=== PATIENT | male | born 1950 | race Caucasian/White ===

== ENCOUNTER 2020-08-26 08:44 | Inpatient (IN) ==
[2020-08-26] MEDS ORDERED: Isovue-370 500 ML BOTTLE IVP ONE (09:53)
[2020-08-26] MEDS ORDERED: *HR* HYDROmorphone (PF) 1 MG/ML SYRINGE IVP ONE ×2 (09:54→12:34)
[2020-08-26 10:37] LABS: INR 1.8; Prothrombin Time 20.7 Seconds (9.4-12.1)
[2020-08-26 10:40] LABS: Activated Partial Thrombo Time 31.9 Seconds (26.0-36.0)
[2020-08-26 10:52] LABS: Alanine Aminotransferase 18 Units/L (7-52); Albumin 3.6 g/dL (3.5-5.7); Alkaline Phosphatase 130 Units/L (34-104); Aspartate Amino Transferase 22 Units/L (13-39); BUN/Creatinine Ratio 15 (6-26); Bilirubin,Direct 0.1 mg/dL (0.0-0.2); Bilirubin,Indirect 0.4 mg/dL (0.0-1.0); Bilirubin,Total 0.5 mg/dL (0.3-1.0); Blood Urea Nitrogen 14 mg/dL (8-23); Calcium 8.7 mg/dL (8.6-10.3); Carbon Dioxide 28 mEq/L (23-29); Chloride 98 mEq/L (98-107); Globulin 3.7 g/dL (2.4-3.5); Glucose 109 mg/dL (70-105); Lipase 3 Units/L (11-82); Osmolality,Calculated 285 (280-300); Potassium 3.7 mEq/L (3.5-5.1); Sodium 137 mEq/L (136-145); Total Protein 7.3 g/dL (6.4-8.9); Troponin I 0.03 ng/mL (< 0.04); eGFR For African Americans > 60 (> 60); eGFR For Non-African Americans > 60 (> 60)
[2020-08-26 11:50] LABS: Eosinophils % 0.2 %; Mean Corpuscular Volume 92.7 fL (83.0-100.0); White Blood Count 17.9 K/mcL (4.3-11.1)
[2020-08-26 11:52] LABS: Basophils # 0.1 K/mcL (0.0-0.2); Basophils % 0.8 %; Hematocrit 31.9 % (37.5-50.1); Hemoglobin 10.7 g/dL (12.9-16.9); Immature Granulocytes % 1.3 % (0-4); Immature Platelets 9.3 % (1.1-6.1); Lymphocytes # 1.6 K/mcL (0.6-4.6); Lymphocytes % 8.9 %; Mean Corpuscular HGB Conc 33.5 g/dL (31.6-35.5); Mean Corpuscular Hemoglobin 31.1 pg (28.0-33.3); Mean Platelet Volume 11.5 fL (9.4-12.4); Monocytes # 1.2 K/mcL (0.0-1.3); Monocytes % 6.5 %; Nucleated Red Blood Cells 0.1 /100 WBC (0); Red Blood Count 3.44 M/mcL (4.19-5.50); Segmented Neutrophils % 82.3 %
[2020-08-26 11:54] LABS: Neutrophils # 14.7 K/mcL (1.6-8.9); Platelet Count 65 K/mcL (140-400)
[2020-08-26] MEDS ORDERED: Azithromycin 500 MG in 0.9 % Sodium Chloride 250 ML IVPB ONE (12:04)
[2020-08-26] MEDS ORDERED: cefTRIAXone 1,000 MG in 0.9 % Sodium Chloride Mini Bag 100 ML IVPB ONE (12:04)
[2020-08-26] MEDS ORDERED: 0.9 % Sodium Chloride 1,000 ML IV ONE (12:04)
[2020-08-26 13:27] LABS: Bilirubin,Urine Negative (Negative); Blood,Urine Trace (Negative); Clarity,Urine Clear (Clear); Color,Urine Yellow (Yellow); Glucose,Urine (UA) Normal (Normal); Ketones,Urine Trace mg/dL (Negative); Leukocyte Esterase,Urine Negative (Negative); Mucus,Urine Few per lpf (None-Few); Nitrite,Urine Negative (Negative); PH,Urine 7.5 pH Units (5.0-8.0); Protein,Urine Trace mg/dL (Neg-Trace); Specific Gravity,Urine > 1.030 (1.010-1.025)
[2020-08-26] MEDS ORDERED: cefTRIAXone 1,000 MG in Water for inj. (sterile) 10 ML IVP STA (13:57)
[2020-08-26] MEDS ORDERED: Naloxone 0.4 MG/ML INJ IVP PRN (13:59)
[2020-08-26] MEDS ORDERED: Nitroglycerin 0.4 MG TAB.SUBL SL PRN (14:00)
[2020-08-26] MEDS ORDERED: Albuterol 2.5 MG/3 ML NEBULIZER AER PRN (14:08)
[2020-08-26 14:49] LABS: % Iron Saturation 24 % (20-55); Iron 64 mcg/dL (65-175); Transferrin 187 mg/dL (203-362)
[2020-08-26] MEDS: Aspirin Enteric Coated 81 MG Tablet PO SCH (15:32)
[2020-08-26] MEDS: Piperacillin/Tazobactam 3.375 GM in 0.9 % Sodium Chloride Mini Bag 100 ML IVPB SCH ×2 (15:32→23:20)
[2020-08-26] MEDS: Metoprolol XL (24 HR) Succ 50 MG TAB.ER.24H PO SCH ×2 (15:32→20:59)
[2020-08-26] MEDS: Apixaban 5 MG TABLET PO SCH ×2 (15:32→20:59)
[2020-08-26] MEDS: Gabapentin 300 MG CAPSULE PO SCH ×2 (15:32→20:59)
[2020-08-26] MEDS ORDERED: *HR* HYDROmorphone (PF) 1 MG/ML SYRINGE IVP PRN (16:07)
[2020-08-26] MEDS: Vancomycin 1,250 MG/262.5 ML IV.SOLN IVPB SCH (16:27)
[2020-08-26] MEDS: *HR* OxyCODONE ER (12 HR) 10 MG TABLET PO SCH (17:15)
[2020-08-26] MEDS: *HR* HYDROmorphone (PF) 1 MG/ML SYRINGE IVP PRN (20:58)
[2020-08-26] MEDS: Melatonin 3 MG TABLET PO PRN (20:59)
[2020-08-27] MEDS: *HR* HYDROmorphone (PF) 1 MG/ML SYRINGE IVP PRN ×6 (01:02→22:10)
[2020-08-27 02:02] LABS: Basophils # 0.1 K/mcL (0.0-0.2); Basophils % 0.6 %; Eosinophils # 0.1 K/mcL (0.0-0.6); Eosinophils % 0.6 %; Hematocrit 28.5 % (37.5-50.1); Hemoglobin 9.5 g/dL (12.9-16.9); Immature Granulocytes % 1.4 % (0-4); Immature Platelets 5.9 % (1.1-6.1); Lymphocytes # 1.9 K/mcL (0.6-4.6); Mean Corpuscular HGB Conc 33.3 g/dL (31.6-35.5); Mean Corpuscular Hemoglobin 31.6 pg (28.0-33.3); Mean Corpuscular Volume 94.7 fL (83.0-100.0); Mean Platelet Volume 10.9 fL (9.4-12.4); Monocytes % 9.3 %; Neutrophils # 7.6 K/mcL (1.6-8.9); Nucleated Red Blood Cells 0.2 /100 WBC (0); Red Blood Count 3.01 M/mcL (4.19-5.50); Segmented Neutrophils % 70.1 %; White Blood Count 10.8 K/mcL (4.3-11.1)
[2020-08-27 02:04] LABS: Platelet Count 84 K/mcL (140-400)
[2020-08-27 02:16] LABS: Alanine Aminotransferase 15 Units/L (7-52); Albumin 3.1 g/dL (3.5-5.7); Alkaline Phosphatase 108 Units/L (34-104); Aspartate Amino Transferase 19 Units/L (13-39); BUN/Creatinine Ratio 15 (6-26); Bilirubin,Total 0.4 mg/dL (0.3-1.0); Blood Urea Nitrogen 13 mg/dL (8-23); Calcium 8.1 mg/dL (8.6-10.3); Carbon Dioxide 25 mEq/L (23-29); Chloride 102 mEq/L (98-107); Globulin 3.2 g/dL (2.4-3.5); Glucose 108 mg/dL (70-105); Osmolality,Calculated 285 (280-300); Potassium 3.5 mEq/L (3.5-5.1); Sodium 137 mEq/L (136-145); Total Protein 6.3 g/dL (6.4-8.9); eGFR For African Americans > 60 (> 60); eGFR For Non-African Americans > 60 (> 60)
[2020-08-27] MEDS: Vancomycin 1,250 MG/262.5 ML IV.SOLN IVPB SCH ×2 (02:57→16:24)
[2020-08-27] MEDS: *HR* OxyCODONE ER (12 HR) 10 MG TABLET PO SCH (05:13)
[2020-08-27] MEDS: Calcium Gluconate 1gm/50mL 1 GM/50 ML BAG IVPB SCH ×2 (07:50→08:38)
[2020-08-27] MEDS: Piperacillin/Tazobactam 3.375 GM in 0.9 % Sodium Chloride Mini Bag 100 ML IVPB SCH ×2 (07:51→16:24)
[2020-08-27] MEDS ORDERED: Iron Sucrose Complex 400 MG in 0.9 % Sodium Chloride 250 ML IVPB ONE (08:41)
[2020-08-27] MEDS: Metoprolol XL (24 HR) Succ 50 MG TAB.ER.24H PO SCH ×3 (09:19→19:48)
[2020-08-27] MEDS: Gabapentin 300 MG CAPSULE PO SCH ×4 (09:19→19:48)
[2020-08-27] MEDS: Multivit/Ca/Min/Fe/FA 1 TAB TABLET PO SCH (09:19)
[2020-08-27] MEDS: Aspirin Enteric Coated 81 MG Tablet PO SCH (09:20)
[2020-08-27] MEDS: Apixaban 5 MG TABLET PO SCH ×2 (09:21→19:47)
[2020-08-27] MEDS: Ondansetron 4 MG/2 ML VIAL IVP PRN (12:34)
[2020-08-27] MEDS ORDERED: *HR* HYDROmorphone (PF) 1 MG/ML SYRINGE IVP PRN (14:10)
[2020-08-27] MEDS ORDERED: *HR* FentaNYL PATCH 25 MCG PATCH TD SCH (14:30)
[2020-08-27] MEDS ORDERED: Ipratropium/Albuterol Neb 3 ML IH SCH (16:00)
[2020-08-27] MEDS ORDERED: Ipratropium/Albuterol Neb 3 ML IH PRN (16:15)
[2020-08-27] MEDS: Melatonin 3 MG TABLET PO PRN (19:47)
[2020-08-27] MEDS: Chlorhexidine Rinse 15 ML MOUTHWASH MM SCH (21:09)
[2020-08-28] MEDS: Piperacillin/Tazobactam 3.375 GM in 0.9 % Sodium Chloride Mini Bag 100 ML IVPB SCH ×3 (00:17→15:34)
[2020-08-28 02:10] LABS: Hematocrit 29.5 % (37.5-50.1); Hemoglobin 9.5 g/dL (12.9-16.9); Mean Corpuscular HGB Conc 32.2 g/dL (31.6-35.5); Mean Corpuscular Hemoglobin 30.9 pg (28.0-33.3); Mean Corpuscular Volume 96.1 fL (83.0-100.0); Mean Platelet Volume 10.3 fL (9.4-12.4); Platelet Count 107 K/mcL (140-400); Red Blood Count 3.07 M/mcL (4.19-5.50); Red Cell Distribution Width 14.4 % (11.5-14.5); White Blood Count 9.2 K/mcL (4.3-11.1)
[2020-08-28 02:31] LABS: BUN/Creatinine Ratio 13 (6-26); Blood Urea Nitrogen 12 mg/dL (8-23); Calcium 8.3 mg/dL (8.6-10.3); Carbon Dioxide 27 mEq/L (23-29); Chloride 104 mEq/L (98-107); Glucose 98 mg/dL (70-105); Magnesium 1.2 mg/dL (1.6-2.6); Osmolality,Calculated 288 (280-300); Potassium 3.7 mEq/L (3.5-5.1); Sodium 139 mEq/L (136-145); eGFR For African Americans > 60 (> 60); eGFR For Non-African Americans > 60 (> 60)
[2020-08-28 02:59] LABS: Folate > 22.3 ng/mL (3.0-16.0); Vitamin B12 > 1500 pg/mL (250-1100)
[2020-08-28] MEDS: Vancomycin 1,250 MG/262.5 ML IV.SOLN IVPB SCH ×2 (04:34→15:34)
[2020-08-28] MEDS: *HR* HYDROmorphone (PF) 1 MG/ML SYRINGE IVP PRN ×4 (04:35→22:00)
[2020-08-28] MEDS: Gabapentin 300 MG CAPSULE PO SCH ×4 (07:51→21:09)
[2020-08-28] MEDS: Multivit/Ca/Min/Fe/FA 1 TAB TABLET PO SCH (07:51)
[2020-08-28] MEDS: Sennosides/Docusate Sodium TABLET PO SCH (07:51)
[2020-08-28] MEDS: Folic Acid 1 MG TABLET PO SCH (07:51)
[2020-08-28] MEDS: Apixaban 5 MG TABLET PO SCH ×2 (07:52→21:09)
[2020-08-28] MEDS: Metoprolol XL (24 HR) Succ 50 MG TAB.ER.24H PO SCH ×2 (07:52→21:09)
[2020-08-28] MEDS: Aspirin Enteric Coated 81 MG Tablet PO SCH (07:52)
[2020-08-28] MEDS: *HR* OxyCODONE Immed Rel 5 MG TABLET PO PRN ×2 (07:52→15:27)
[2020-08-28] MEDS: Calcium Gluconate 1gm/50mL 1 GM/50 ML BAG IVPB SCH ×2 (08:08→09:12)
[2020-08-28] MEDS: Chlorhexidine Rinse 15 ML MOUTHWASH MM SCH ×2 (08:09→21:09)
[2020-08-28] MEDS: Ondansetron 4 MG/2 ML VIAL IVP PRN ×2 (08:09→21:10)
[2020-08-28] MEDS ORDERED: NON-FORMULARY MEDICATION 1 EACH EACH (Umeclidinium Brm/Vilanterol Tr [Anoro Ellipta 62.5-2 IH SCH (09:00)
[2020-08-28] MEDS ORDERED: *HR* HYDROmorphone (PF) 1 MG/ML SYRINGE IVP ONE (18:47)
[2020-08-28] MEDS ORDERED: GI Cocktail 40 ML EACH PO ONE (20:46)
[2020-08-29] MEDS: Piperacillin/Tazobactam 3.375 GM in 0.9 % Sodium Chloride Mini Bag 100 ML IVPB SCH ×3 (00:19→15:26)
[2020-08-29] MEDS: *HR* OxyCODONE Immed Rel 5 MG TABLET PO PRN ×5 (00:25→18:58)
[2020-08-29 00:36] LABS: Hematocrit 30.2 % (37.5-50.1); Hemoglobin 9.8 g/dL (12.9-16.9); Mean Corpuscular HGB Conc 32.5 g/dL (31.6-35.5); Mean Corpuscular Hemoglobin 30.8 pg (28.0-33.3); Mean Platelet Volume 10.4 fL (9.4-12.4); Platelet Count 148 K/mcL (140-400); Red Blood Count 3.18 M/mcL (4.19-5.50); Red Cell Distribution Width 14.7 % (11.5-14.5); White Blood Count 13.2 K/mcL (4.3-11.1)
[2020-08-29 00:58] LABS: BUN/Creatinine Ratio 9 (6-26); Blood Urea Nitrogen 12 mg/dL (8-23); Calcium 8.7 mg/dL (8.6-10.3); Carbon Dioxide 24 mEq/L (23-29); Chloride 102 mEq/L (98-107); Glucose 106 mg/dL (70-105); Magnesium 2.1 mg/dL (1.6-2.6); Osmolality,Calculated 288 (280-300); Phosphorous 4.3 mg/dL (2.7-4.5); Potassium 3.5 mEq/L (3.5-5.1); Sodium 139 mEq/L (136-145); eGFR For African Americans > 60 (> 60); eGFR For Non-African Americans 51 (> 60)
[2020-08-29] MEDS: Vancomycin 1,250 MG/262.5 ML IV.SOLN IVPB SCH (02:42)
[2020-08-29] MEDS: Ondansetron 4 MG/2 ML VIAL IVP PRN (05:32)
[2020-08-29] MEDS ORDERED: Ringers Solution, Lactated 1,000 ML IVC SCH (07:45)
[2020-08-29] MEDS: Gabapentin 300 MG CAPSULE PO SCH ×4 (08:31→19:56)
[2020-08-29] MEDS: Apixaban 5 MG TABLET PO SCH ×2 (08:31→19:56)
[2020-08-29] MEDS: Metoprolol XL (24 HR) Succ 50 MG TAB.ER.24H PO SCH ×2 (08:31→19:58)
[2020-08-29] MEDS: Aspirin Enteric Coated 81 MG Tablet PO SCH (08:31)
[2020-08-29] MEDS: Chlorhexidine Rinse 15 ML MOUTHWASH MM SCH ×2 (08:31→19:56)
[2020-08-29] MEDS: Sennosides/Docusate Sodium TABLET PO SCH (08:31)
[2020-08-29] MEDS: Folic Acid 1 MG TABLET PO SCH (08:31)
[2020-08-29] MEDS: Multivit/Ca/Min/Fe/FA 1 TAB TABLET PO SCH (08:31)
[2020-08-29] MEDS ORDERED: *HR* HYDROmorphone (PF) 1 MG/ML SYRINGE IVP ONE (10:43)
[2020-08-29] MEDS ORDERED: *HR* FentaNYL PATCH 25 MCG PATCH TD SCH (11:00)
[2020-08-30] MEDS: *HR* OxyCODONE Immed Rel 5 MG TABLET PO PRN ×3 (00:36→13:59)
[2020-08-30 05:00] LABS: Hematocrit 26.4 % (37.5-50.1); Hemoglobin 8.5 g/dL (12.9-16.9); Mean Corpuscular HGB Conc 32.2 g/dL (31.6-35.5); Mean Corpuscular Hemoglobin 31.4 pg (28.0-33.3); Mean Corpuscular Volume 97.4 fL (83.0-100.0); Mean Platelet Volume 10.1 fL (9.4-12.4); Platelet Count 168 K/mcL (140-400); Red Blood Count 2.71 M/mcL (4.19-5.50); Red Cell Distribution Width 15.1 % (11.5-14.5); White Blood Count 9.6 K/mcL (4.3-11.1)
[2020-08-30 05:23] LABS: Calcium 8.3 mg/dL (8.6-10.3); Magnesium 1.7 mg/dL (1.6-2.6); Phosphorous 3.6 mg/dL (2.7-4.5); Potassium 3.6 mEq/L (3.5-5.1)
[2020-08-30] MEDS: Metoprolol XL (24 HR) Succ 50 MG TAB.ER.24H PO SCH (07:41)
[2020-08-30] MEDS: Gabapentin 300 MG CAPSULE PO SCH ×2 (07:41→14:00)
[2020-08-30] MEDS: Folic Acid 1 MG TABLET PO SCH (07:41)
[2020-08-30] MEDS: Sennosides/Docusate Sodium TABLET PO SCH (07:42)
[2020-08-30] MEDS: Aspirin Enteric Coated 81 MG Tablet PO SCH (07:42)
[2020-08-30] MEDS: Apixaban 5 MG TABLET PO SCH (07:42)
[2020-08-30] MEDS: Multivit/Ca/Min/Fe/FA 1 TAB TABLET PO SCH (07:44)
[2020-08-30] MEDS ORDERED: Ringers Solution, Lactated 1,000 ML IVC SCH (09:30)
[2020-08-30] MEDS: Calcium Gluconate 1gm/50mL 1 GM/50 ML BAG IVPB SCH ×2 (09:35→10:54)
[2020-08-30] MEDS: Chlorhexidine Rinse 15 ML MOUTHWASH MM SCH (09:41)
[2020-08-30 13:58] VITALS: BP 111/63
[2020-08-30] MEDS ORDERED: levoFLOXacin 750 MG TABLET PO ONE (14:00)
[2020-08-30] MEDS ORDERED: *HR* OxyCODONE Immed Rel 15 MG TABLET PO PRN (15:03)
== END 2020-08-30 15:34 | disposition home health service (06) | DRG 871 ==
LOC: EMEROOARM 08:44 → 3ANU 08:44 → SUATTDRO 14:00 → 3ANU 14:51 → UNDODISIN 08-30 14:11
PROVIDERS: ADMIT Internal Medicine; ATTEND Internal Medicine

== ENCOUNTER 2020-10-01 04:20 | Observation (INO) ==
[2020-10-01] MEDS ORDERED: Isovue-370 500 ML BOTTLE IVP ONE (04:25)
[2020-10-01] MEDS ORDERED: Tdap (Boostrix) Vaccine 0.5 ML SYRINGE IM ONE (04:29)
[2020-10-01] MEDS ORDERED: Lidocaine 1% 20 ML MDV INFILT ONE (04:54)
[2020-10-01 06:29] LABS: INR 1.3; Prothrombin Time 15.1 Seconds (9.4-12.1)
[2020-10-01] MEDS ORDERED: Gabapentin 300 MG CAPSULE PO ONE (07:33)
[2020-10-01] MEDS ORDERED: dexAMETHasone 4 MG TABLET PO ONE (07:33)
[2020-10-01 08:24] LABS: Bilirubin,Urine Negative (Negative); Blood,Urine Negative (Negative); Clarity,Urine Clear (Clear); Color,Urine Yellow (Yellow); Glucose,Urine (UA) Normal (Normal); Ketones,Urine Negative (Negative); Leukocyte Esterase,Urine Negative (Negative); Nitrite,Urine Negative (Negative); PH,Urine 5.5 pH Units (5.0-8.0); Protein,Urine Trace mg/dL (Neg-Trace); Specific Gravity,Urine 1.028 (1.010-1.025); Urobilinogen,Urine Normal (Normal)
[2020-10-01] MEDS ORDERED: *HR* FentaNYL (PF) 100 MCG/2 ML VIAL IVP ONE (08:31)
[2020-10-01] MEDS ORDERED: Lidocaine/EPI 1:100k 1% 20 ML VIAL INFILT ONE (09:02)
[2020-10-01 11:02] LABS: Basophils % 0.1 %; Eosinophils % 0.3 %; Hematocrit 32.4 % (37.5-50.1); Hemoglobin 10.8 g/dL (12.9-16.9); Immature Granulocytes % 0.6 % (0-4); Lymphocytes # 0.6 K/mcL (0.6-4.6); Lymphocytes % 4.3 %; Mean Corpuscular HGB Conc 33.3 g/dL (31.6-35.5); Mean Corpuscular Hemoglobin 32.9 pg (28.0-33.3); Mean Corpuscular Volume 98.8 fL (83.0-100.0); Mean Platelet Volume 9.7 fL (9.4-12.4); Monocytes # 0.6 K/mcL (0.0-1.3); Monocytes % 4.4 %; Platelet Count 119 K/mcL (140-400); Red Blood Count 3.28 M/mcL (4.19-5.50); Red Cell Distribution Width 15.8 % (11.5-14.5); Segmented Neutrophils % 90.3 %; White Blood Count 14.4 K/mcL (4.3-11.1)
[2020-10-01 11:27] LABS: Alanine Aminotransferase 20 Units/L (7-52); Albumin 3.1 g/dL (3.5-5.7); Albumin/Globulin Ratio 1.2 (1.1-2.2); Alkaline Phosphatase 99 Units/L (34-104); Aspartate Amino Transferase 29 Units/L (13-39); BUN/Creatinine Ratio 31 (6-26); Bilirubin,Direct 0.2 mg/dL (0.0-0.2); Bilirubin,Indirect 0.4 mg/dL (0.0-1.0); Bilirubin,Total 0.6 mg/dL (0.3-1.0); Blood Urea Nitrogen 27 mg/dL (8-23); Calcium 8.7 mg/dL (8.6-10.3); Carbon Dioxide 27 mEq/L (23-29); Chloride 100 mEq/L (98-107); Globulin 2.6 g/dL (2.4-3.5); Glucose 102 mg/dL (70-105); Osmolality,Calculated 283 (280-300); Potassium 3.7 mEq/L (3.5-5.1); Sodium 134 mEq/L (136-145); Total Protein 5.7 g/dL (6.4-8.9); Troponin I 0.03 ng/mL (< 0.04); eGFR For African Americans > 60 (> 60); eGFR For Non-African Americans > 60 (> 60)
[2020-10-01] MEDS ORDERED: Naloxone 0.4 MG/ML INJ IVP PRN (14:13)
[2020-10-01 14:51] VITALS: BP 159/78; PULSE 83; TEMP 98.3; O2SAT 97
[2020-10-01] MEDS ORDERED: *HR* HYDROcodone/Acet 5/325 mg TABLET PO ONE (15:01)
== END 2020-10-01 16:05 | disposition short-term general hospital (02) ==
LOC: 3BNU 04:20 → EMEROOARM 04:20 → 3BNU 12:57
PROVIDERS: ADMIT Family Medicine; ATTEND Family Medicine